=== PATIENT | female | born 1990 | race Caucasian/White ===

== ENCOUNTER 2016-10-31 14:50 | Outpatient (CLI) | payer OTHER ==
[2016-10-31 15:34] LABS: HEMOGLOBIN 11.1 gm/dl (12.3-15.3); RED BLOOD COUNT 4.48 M/UL (4.00-5.10); WHITE BLOOD COUNT 11.2 K/UL (4.5-11.0)
== END 2016-10-31 15:53 | disposition home or self-care (01) ==
LOC: GENOP 14:50
PROVIDERS: Obstetrics & Gynecology
DX: Z01.812 Encounter for preprocedural laboratory examination (principal); O34.219 Maternal care for unspecified type scar from previous cesarean delivery; Z3A.00 Weeks of gestation of pregnancy not specified
CPT/HCPCS: 36415; 80307; 81001; 85025

== ENCOUNTER 2016-11-01 05:47 | Inpatient (IN) | payer OTHER ==
[~2016-11-01] VITALS: Ht 162.6 cm; Wt 78.9 kg
[2016-11-02 03:51] LABS: HEMOGLOBIN 10.3 gm/dl (12.3-15.3)
[2016-11-04] MEDS ORDERED: COLACE 100MG C100 MG PO (11:49)
== END 2016-11-04 10:46 | disposition home or self-care (01) | DRG 765 ==
LOC: OB 05:47
PROVIDERS: ADMIT Obstetrics & Gynecology
PROC: 10D00Z1 Extraction of Products of Conception, Low, Open Approach (ICD-10-PCS; principal; 2016-11-01 09:00)
DX: O99.324 Drug use complicating childbirth (principal); F11.20 Opioid dependence, uncomplicated; O36.5930 Maternal care for other known or suspected poor fetal growth, third trimester, not applicable or unspecified; Z3A.38 38 weeks gestation of pregnancy; Z37.0 Single live birth
CPT/HCPCS: 36600; 82800; 85014; 85018; C9113; J0690; J2250; J2270; J2590; J2765; J3430; J7120